=== PATIENT | female | born 1960 | race American Indian/Alaskan Native ===

== ENCOUNTER 2019-04-01 02:45 | Emergency (ER) | payer SELFPAY ==
[2019-04-01 03:31] LABS: Basophils % (Auto) 0.2 % (0.0-1.8); Eosinophils % (Auto) 0.2 % (0.0-4.3); Hematocrit 43.4 % (30.3-42.9); Lymphocytes # (Auto) 3.8 K/mm3 (1.2-5.4); Mean Corpuscular HGB Conc 35 % (30-34); Mean Corpuscular Volume 88 fl (79-97); Monocytes # (Auto) 1.2 K/mm3 (0.0-0.8); Platelet Count 349 K/mm3 (140-440); Red Blood Count 4.91 M/mm3 (3.65-5.03); Red Cell Distribution Width 14.1 % (13.2-15.2)
[2019-04-01] MEDS ORDERED: NACL 0.9% 1000 ML 1,000 ML IV ONE (03:38)
[2019-04-01] MEDS ORDERED: ZOFRAN IV ONE (03:39)
[2019-04-01] MEDS ORDERED: MORPHINE IV ONE (03:40)
[2019-04-01 04:03] LABS: Albumin 4.2 g/dL (3.9-5); Calcium 9.8 mg/dL (8.4-10.2)
[2019-04-01 04:15] LABS: Bacteria,Urine 2+ /HPF (Negative); Bilirubin,Urine NEG (Negative); Blood,Urine NEG (Negative); Color,Urine Yellow (Yellow); Hyaline Casts,Urine 17 /LPF; Mucus,Urine 3+ /HPF; Protein,Urine <15 mg/dL mg/dL (Negative); Urobilinogen,Urine < 2.0 mg/dL (<2.0)
[2019-04-01] MEDS ORDERED: ROCEPHIN/NS 1 GM/50 ML 1 GM/50 ML BAG IV ONE (04:26)
--- NOTE | 2019-04-01 04:45 | XRay Report ---
PROCEDURE: XR CHEST ROUTINE 2V TECHNIQUE: PA and lateral chest radiographs were obtained. HISTORY: cough COMPARISONS: None. FINDINGS: No mediastinal shift. Cardiac silhouette is not enlarged. Mild hyperaeration of the lungs and flatte sylvia of the hemidiaphragms. No pneumothorax, effusion, or focal pulmonary opacity. No acute skeletal finding. IMPRESSION: Suggested sequela of COPD without superimposed acute pulmonary abnormality. This document is electronically signed by Konrad Nair MD., April 01 2019 04:43:21 AM ET
[2019-04-01] MEDS ORDERED: K-DUR PO ONE (04:46)
--- NOTE | 2019-04-01 05:44 | Emergency Department Report ---
<BRENNA LYNN - Last Filed: 04/01/19 07:24> ED General Adult HPI - General Chief complaint: Pain General Stated complaint: MUSCLE CRAMPS Time Seen by Provider: 04/01/19 03:20 Source: patient Mode of arrival: Ambulatory Limitations: No Limitations - History of Present Illness Initial comments: Patient is a 58-year-old -[place] female with a history of hypertension and hyperlipidemia who presents to the ED with complaint of acute onset persistent severe muscle cramps in the upper extremities diffusely and low back pain for the last 2 hours. Patient states that she was asleep at home when she was woken up fluid severe muscle cramps in her hands, and her arms diffusely and bilaterally. Patient also states that she also has had intermittent low back pain that occasionally radiates to her right leg. The patient denies a fall, traumatic injury, dizziness, chest pain, shortness of breath, cough, dysuria, vaginal bleeding, nausea, vomiting, diarrhea, sore throat, nasal and sinus congestion or headache and dizziness. MD Complaint: Bilateral upper extremity cramps; low back pain -: Sudden, hour(s) (2) Location: back (lower back), upper extremity (bilateral arms) Radiation: back (lower), extremity (bilateral arms and hands) Severity scale (0 -10): 4 Quality: aching, sharp Consistency: constant Improves with: none Worsens with: none Associated Symptoms: denies: confusion, chest pain, cough, diaphoresis, fever/chills, headaches, loss of appetite, malaise, nausea/vomiting, rash, shortness of breath, syncope, weakness Treatments Prior to Arrival: none - Related Data Previous Rx's Medication Instructions Recorded Last Taken Type Nitrofurantoin Lassen/M-Cryst 100 mg PO Q12HR #10 capsule 04/01/19 Unknown Rx [Macrobid CAP] Allergies Allergy/AdvReac Type Severity Reaction Status Date / Time No Known Allergies Allergy Unverified 04/01/19 02:54 ED Review of Systems Comment: All other systems reviewed and negative Constitutional: malaise. denies: chills, fever Eyes: denies: eye pain, eye discharge, vision change ENT: denies: ear pain, throat pain, dental pain, hearing loss, congestion Respiratory: denies: cough, orthopnea, shortness of breath, SOB with exertion, SOB at rest, wheezing Cardiovascular: denies: chest pain, palpitations, dyspnea on exertion, edema, syncope, paroxysmal nocturnal dyspnea Endocrine: no symptoms reported. denies: see HPI, excessive sweating, flushing, intolerance to cold, increased hunger, increased thirst, increased urine, unexplained weight gain Gastrointestinal: denies: abdominal pain, nausea, vomiting, diarrhea, constipation, hematemesis Genitourinary: denies: urgency, dysuria, discharge Musculoskeletal: back pain (lower back), arthralgia (upper extremities bilaterally), myalgia. denies: joint swelling Skin: denies: rash, lesions Neurological: denies: headache, weakness, paresthesias Psychiatric: denies: anxiety, depression Hematological/Lymphatic: denies: easy bleeding, easy bruising ED Past Medical Hx - Past Medical History Previous Medical History?: Yes Hx Hypertension: Yes Additional medical history: High cholesterol - Surgical History Past Surgical History?: No - Social History Smoking Status: Current Every Day Smoker Substance Use Type: None - Medications Home Medications: Home Medications Medication Instructions Recorded Confirmed Last Taken Type Nitrofurantoin Lassen/M-Cryst 100 mg PO Q12HR #10 capsule 04/01/19 Unknown Rx [Macrobid CAP] ED Physical Exam - General Limitations: No Limitations General appearance: alert, in no apparent distress - Head Head exam: Present: atraumatic, normocephalic, normal inspection - Eye Eye exam: Present: normal appearance, PERRL, EOMI. Absent: scleral icterus, conjunctival injection, periorbital swelling, periorbital tenderness - ENT ENT exam: Present: normal exam, normal orophraynx, mucous membranes moist, TM's normal bilaterally, normal external ear exam - Neck Neck exam: Present: normal inspection, full ROM. Absent: tenderness, meningis mus, lymphadenopathy, thyromegaly - Respiratory Respiratory exam: Present: normal lung sounds bilaterally. Absent: respiratory distress, wheezes, rales, rhonchi, chest wall tenderness, accessory muscle use, decreased breath sounds, prolonged expiratory - Cardiovascular Cardiovascular Exam: Present: regular rate, normal rhythm, normal heart sounds. Absent: systolic murmur, diastolic murmur, rubs, gallop - GI/Abdominal GI/Abdominal exam: Present: soft, normal bowel sounds. Absent: distended, tenderness, guarding, rebound, hyperactive bowel sounds, hypoactive bowel sounds, organomegaly - Extremities Exam Extremities exam: Present: normal inspection, full ROM, tenderness (Mild and diffuse upper extremity tenderness), normal capillary refill - Back Exam Back exam: Present: normal inspection, paraspinal tenderness (Mildly tender lumbosacral paraspinal musculoskeletal tenderness). Absent: CVA tenderness (R), CVA tenderness (L), muscle spasm, vertebral tenderness - Neurological Exam Neurological exam: Present: alert, oriented X3, CN II-XII intact, normal gait, reflexes normal - Psychiatric Psychiatric exam: Present: normal affect, normal mood - Skin Skin exam: Present: warm, dry, intact, normal color, cyanosis. Absent: rash ED Course - Reevaluation(s) Reevaluation #1: 04/01/19 07:25 Patient is alert and oriented 3 and is not in distress but in pain. Patient was treated for pain in the ED and lab test results were reviewed and this shows acute leukocytosis of 19,800, hyponatremia 132 mmol per liter and hypokalemia 3.0 mmol per liter. CK level was 174 and hyperglycemia of 1 63 mg/dL. Urinalysis shows some white blood cells and moderate leukocyte esterase with 2+ bacteria. Patient was treated in the ED with pain medications, Rocephin 1 g IV 1, and normal saline 1 L IV bolus. Patient also was treated with potassium chloride 40 mEq by mouth as a Klor-Con, and chest x-ray shows no acute ca rdiopulmonary abnormalities but COPD. Given the fact that the patient's source of significant acute leukocytosis is unknown, abdomen and pelvis CT scan with contrast was ordered. 04/01/19 07:26 Reevaluation #2: 04/01/19 07:27 On reevaluation, the patient's pain is well-controlled with medications, patient resting comfortably and in the presence of her family. Abdomen pelvis CT scan with contrast is currently pending. Patient's care was transferred to my colleague Ms. Colby Lau JUDGE CLERK at shift change at 0700 hours. Ms. Lau shall review the abdomen pelvis CT scan w/contrast a imaging report and disposition the patient appropriately. ED Medical Decision Making - Lab Data Result diagrams: 04/01/19 03:02 04/01/19 03:02 - Radiology Data Radiology results: report reviewed, image reviewed No acute cardiopulmonary abnormalities - Differential Diagnosis Bilateral upper extremity pain; Muscle spasms; Leukocytosis; hypokalemia ED Disposition Clinical Impression: Muscle cramps at night, Acute hypokalemia Leukocytosis Qualifiers: Leukocytosis type: other Qualified Code(s): D72.828 - Other elevated white blood cell count Acute cystitis Qualifiers: Hematuria presence: without hematuria Qualified Code(s): N30.00 - Acute cysti tis without hematuria Disposition: TO HOME OR SELFCARE Condition: Stable Instructions: Urinary Tract Infection in Women (ED), Muscle Cramp (ED) Additional Instructions: Follow up with nephrology from the referral list below regarding kidneys as discussed on visit. Increase fluid intake to 1L to 2L daily. Complete full course of antibiotics as prescribed. Avoid drinking alcohol while taking antibiotics and for 24 hours after completion. Follow up with primary care provider in 2-3 days. Prescriptions: Nitrofurantoin Lassen/M-Cryst [Macrobid CAP] 100 mg PO Q12HR #10 capsule Referrals: [facility] MD NICOLE [Primary Care Provider] - 3-5 Days CRIS HERNANDEZ MD [Staff Physician] - 3-5 Days [facility] [Outside] - 3-5 Days [facility] [Outside] - 3-5 Days Forms: Work/School Release Form(ED) <AMRIT SANTIAGO - Last Filed: 04/01/19 08:18> ED Review of Systems ROS: Stated complaint: MUSCLE CRAMPS Other details as noted in HPI ED Course Vital Signs 04/01/19 02:50 Temperature 98.7 F Pulse Rate 91 H Respiratory 20 Rate Blood Pressure 140/64 O2 Sat by Pulse 98 Oximetry - Reevaluation(s) Reevaluation #2: 04/01/19 08:05 This patient was received from MAYE Bucio at shift change pending CT of abdomen. ED Medical Decision Making - Lab Data Result diagrams: 04/01/19 03:02 04/01/19 03:02 Lab Results 04/01/19 04/01/19 04/01/19 Range/Units 03:02 03:02 03:02 WBC 19.8 H (4.5-11.0) K/mm3 RBC 4.91 (3.65-5.03) M/mm3 Hgb 15.0 H (10.1-14.3) gm/dl Hct 43.4 H (30.3-42.9) % MCV 88 (79-97) fl MCH 31 (28-32) pg MCHC 35 H (30-34) % RDW 14.1 (13.2-15.2) % Plt Count 349 (140-440) K/mm3 Lymph % (Auto) 19.0 (13.4-35.0) % Lassen % (Auto) 6.0 (0.0-7.3) % Eos % (Auto) 0.2 (0.0-4.3) % Baso % (Auto) 0.2 (0.0-1.8) % Lymph # 3.8 (1.2-5.4) K/mm3 Lassen # 1.2 H (0.0-0.8) K/mm3 Eos # 0.0 (0.0-0.4) K/mm3 Baso # 0.0 (0.0-0.1) K/mm3 Seg Neutrophils % 74.6 H (40.0-70.0) % Seg Neutrophils # 14.7 H (1.8-7.7) K/mm3 Sodium 132 L (137-145) mmol/L Potassium 3.0 L (3.6-5.0) mmol/L Chloride 90.3 L (98-107) mmol/L Carbon Dioxide 22 (22-30) mmol/L Anion Gap 23 mmol/L BUN 23 H (7-17) mg/dL Creatinine 1.2 (0.7-1.2) mg/dL Estimated GFR 56 ml/min BUN/Creatinine Ratio 19 % Glucose 163 H (65-100) mg/dL Calcium 9.8 (8.4-10.2) mg/dL Magnesium (1.7-2.3) mg/dL Total Bilirubin 0.30 (0.1-1.2) mg/dL AST 25 (5-40) units/L ALT 17 (7-56) units/L Alkaline Phosphatase 112 (35-129) units/L Total Creatine Kinase 174 H (30-135) units/L Troponin T < 0.010 (0.00-0.029) ng/mL Total Protein 7.5 (6.3-8.2) g/dL Albumin 4.2 (3.9-5) g/dL Albumin/Globulin Ratio 1.3 % Urine Color (Yellow) Urine Turbidity (Clear) Urine pH (5.0-7.0) Ur Specific Preston (1.003-1.030) Urine Protein (Negative) mg/dL Urine Glucose (UA) (Negative) mg/dL Urine Ketones (Negative) mg/dL Urine Blood (Negative) Urine Nitrite (Negative) Urine Bilirubin (Negative) Urine Urobilinogen (<2.0) mg/dL Ur Leukocyte Esterase (Negative) Urine WBC (Auto) (0.0-6.0) /HPF Urine RBC (Auto) (0.0-6.0) /HPF U Epithel Cells (Auto) (0-13.0) /HPF Urine Bacteria (Auto) (Negative) /HPF Hyaline Casts /LPF Urine Mucus /HPF 04/01/19 04/01/19 Range/Units 03:30 05:55 WBC (4.5-11.0) K/mm3 RBC (3.65-5.03) M/mm3 Hgb (10.1-14.3) gm/dl Hct (30.3-42.9) % MCV (79-97) fl MCH (28-32) pg MCHC (30-34) % RDW (13.2-15.2) % Plt Count (140-440) K/mm3 Lymph % (Auto) (13.4-35.0) % Lassen % (Auto) (0.0-7.3) % Eos % (Auto) (0.0-4.3) % Baso % (Auto) (0.0-1.8) % Lymph # (1.2-5.4) K/mm3 Lassen # (0.0-0.8) K/mm3 Eos # (0.0-0.4) K/mm3 Baso # (0.0-0.1) K/mm3 Seg Neutrophils % (40.0-70.0) % Seg Neutrophils # (1.8-7.7) K/mm3 Sodium (137-145) mmol/L Potassium (3.6-5.0) mmol/L Chloride (98-107) mmol/L Carbon Dioxide (22-30) mmol/L Anion Gap mmol/L BUN (7-17) mg/dL Creatinine (0.7-1.2) mg/dL Estimated GFR ml/min BUN/Creatinine Ratio % Glucose (65-100) mg/dL Calcium (8.4-10.2) mg/dL Magnesium 2.10 (1.7-2.3) mg/dL Total Bilirubin (0.1-1.2) mg/dL AST (5-40) units/L ALT (7-56) units/L Alkaline Phosphatase (35-129) units/L Total Creatine Kinase (30-135) units/L Troponin T (0.00-0.029) ng/mL Total Protein (6.3-8.2) g/dL Albumin (3.9-5) g/dL Albumin/Globulin Ratio % Urine Color Yellow (Yellow) Urine Turbidity Cloudy (Clear) Urine pH 5.0 (5.0-7.0) Ur Specific Preston 1.016 (1.003-1.030) Urine Protein <15 mg/dl (Negative) mg/dL Urine Glucose (UA) Neg (Negative) mg/dL Urine Ketones Neg (Negative) mg/dL Urine Blood Neg (Negative) Urine Nitrite Neg (Negative) Urine Bilirubin Neg (Negative) Urine Urobilinogen < 2.0 (<2.0) mg/dL Ur Leukocyte Esterase Mod (Negative) Urine WBC (Auto) 9.0 H (0.0-6.0) /HPF Urine RBC (Auto) 8.0 (0.0-6.0) /HPF U Epithel Cells (Auto) 13.0 (0-13.0) /HPF Urine Bacteria (Auto) 2+ (Negative) /HPF Hyaline Casts 17 /LPF Urine Mucus 3+ /HPF - Radiology Data PROCEDURE: CT ABDOMEN PELVIS W CON TECHNIQUE: Computerized axial tomography of the abdomen and pelvis was performed after the IV injection of iodinated nonionic contrast. HISTORY: ABDOMINAL PAIN COMPARISONS: None . FINDINGS: Partially visualized intrathoracic contents are unremarkable. Benign calcified granuloma noted in the liver. The liver, gallbladder, pancreas, spleen, and adrenal glands are otherwise unremarkable. Extensive chronic cortical scarring and irregularity in the left kidney. Kidneys are normal in axis and position. Compensatory hypertrophy of the right kidney. No hydroureteronephrosis or nephrolithiasis. Anteverted uterus. No free fluid in the pelvis. Urinary bladder is unremarkable. Small and large bowel are normal in caliber. Appendix is normal. No free air, free fluid, or lymphadenopathy identified. An infrarenal abdominal aortic aneurysm is present measuring 3 x 2.7 cm on axial series 2, image 38. Peripheral thrombosis within the aneurysmal sac. Densely scattered atherosclerosis. Superficial soft tissues are unremarkable. No acute or aggressive appearing skeletal findings. IMPRESSION: No acute findings in the abdomen or pelvis. Infrarenal abdominal aortic aneurysm measuring 3 x 2.7 cm. Chronic left renal cortical scarring and atrophy with compensatory hypertrophy of the right kidney. - Medical Decision Making Patient received from MAYE Bucio at shift change pending CT of abdomen. The report was reviewed by myself with no acute findings. Some incidental findings of Infrarenal abdominal aortic aneurysm measuring 3 x 2.7 cm. Chronic left renal cortical scarring and atrophy with compensatory hypertrophy of the right kidney. There is a elevated white count, dirty urine, and hypokalemia. Hypokalemia was treated while in ER with Klor-Con. All other labs are unremarkable. Patient is resting in exam room. Patient will be treated for acute cystitis to cover leukocytosis. Referral to PCP and nephrology for further evaluation. Patient agreed with ER plan. Patient discharged home stable. Critical care attestation.: If time is entered above; I have spent that time in minutes in the direct care of this critically ill patient, excluding procedure time. ED Disposition Is pt being admited?: No Does the pt Need Aspirin: No Time of Disposition: 08:16
--- NOTE | 2019-04-01 07:41 | Cat Scan Report ---
PROCEDURE: CT ABDOMEN PELVIS W CON TECHNIQUE: Computerized axial tomography of the abdomen and pelvis was performed after the IV inject ion of iodinated nonionic contrast. HISTORY: ABDOMINAL PAIN COMPARISONS: None . FINDINGS: Partially visualized intrathoracic contents are unremarkable. Benign calcified granuloma noted in the liver. The liver, gallbladder, pancreas, spleen, and adrenal glands are otherwise unremarkable. Extensive chronic cortical scarring and irregularity in the left kidney. Kidneys are normal in axis a nd position. Compensatory hypertrophy of the right kidney. No hydroureteronephrosis or nephrolithiasi s. Anteverted uterus. No free fluid in the pelvis. Urinary bladder is unremarkable. Small and large bowel are normal in caliber. Appendix is normal. No free air, free fluid, or lymphade nopathy identified. An infrarenal abdominal aortic aneurysm is present measuring 3 x 2.7 cm on axial series 2, image 38. Peripheral thrombosis within the aneurysmal sac. Densely scattered atherosclerosis. Superficial soft tissues are unremarkable. No acute or aggressive appearing skeletal findings. IMPRESSION: No acute findings in the abdomen or pelvis. Infrarenal abdominal aortic aneurysm measuring 3 x 2.7 cm. Chronic left renal cortical scarring and atrophy with compensatory hypertrophy of the right kidney. This document is electronically signed by Konrad Nair MD., April 01 2019 07:39:19 AM ET
[2019-04-01 08:35] VITALS: BP 114/57
== END 2019-04-01 08:33 | disposition home or self-care (01) ==
LOC: ED 02:45
DX: E87.6 Hypokalemia (principal); D72.828 Other elevated white blood cell count; N30.00 Acute cystitis without hematuria; I10 Essential (primary) hypertension; E78.5 Hyperlipidemia, unspecified; F17.200 Nicotine dependence, unspecified, uncomplicated
CPT/HCPCS: 36415; 71046; 74177; 80053; 81001; 82550; 83735; 84484; 85025; 87086; 93005; 93010; 96365; 96375; 99284; J0696; J2270; J2405; J7030; Q9967

== ENCOUNTER 2022-01-19 13:42 | Emergency (ER) | payer SELFPAY ==
[2022-01-19 14:33] VITALS: BP 160/74
[2022-01-19] MEDS ORDERED: dexAMETHasone 20 MG/5 ML VIAL IM ONE (15:03)
--- NOTE | 2022-01-19 15:24 | Emergency Department Report ---
ED Back Pain/Injury HPI - General Chief Complaint: Back Pain/Injury Stated Complaint: BACK PAIN Source: patient Limitations: No Limitations - History of Present Illness Initial Comments: 59-year-old female presents to the ED complaining of back pain x 2 days. States that she was washing dishes and noticed some back pain that radiated down her right leg. Patient states she took gabapentin and tylenol which relieved the right leg pain but did not relieve the back pain. Patient denies any dysuria, loss of bowel or bladder fever, IV drug use or steroid use trauma or unintentional weight loss ,denies any neurological symptoms. Patient is alert and oriented x3. No acute distress noted .No ill appearance. MD Complaint: back pain Similar Symptoms Previously: Yes Place: home Radiation: none Severity: moderate Severity scale (0 -10): 6 Improves With: none Worsens With: none Associated Symptoms: denies other symptoms Treatments Prior to Arrival: cold therapy - Related Data Previous Rx's Medication Instructions Recorded Last Taken Type Nitrofurantoin [place]/M-Cryst 100 mg PO Q12HR #10 capsule 04/01/19 Unknown Rx [Macrobid CAP] predniSONE [Deltasone] 40 mg PO QDAY 5 Days #5 tab 01/19/22 Unknown Rx Allergies Allergy/AdvReac Type Severity Reaction Status Date / Time acetaminophen Allergy Vomiting Verified 01/19/22 14:31 [From Tylenol-Codeine] aspirin Allergy Bleeding Verified 01/19/22 14:31 codeine Allergy Vomiting Verified 01/19/22 14:31 [From Tylenol-Codeine] ED Review of Systems ROS: Stated complaint: BACK PAIN Other details as noted in HPI Constitutional: denies: chills, fever Eyes: denies: eye pain, eye discharge, vision change ENT: denies: ear pain, throat pain Respiratory: denies: cough, shortness of breath, wheezing Cardiovascular: denies: chest pain, palpitations Endocrine: no symptoms reported Gastrointestinal: denies: abdominal pain, nausea, diarrhea Genitourinary: denies: urgency, dysuria, discharge Musculoskeletal: denies: back pain, joint swelling, arthralgia Skin: denies: rash, lesions Neurological: denies: headache, weakness, paresthesias Psychiatric: denies: anxiety, depression Hematological/Lymphatic: denies: easy bleeding, easy bruising ED Past Medical Hx - Past Medical History Previous Medical History?: Yes Hx Hypertension: Yes Additional medical history: High cholesterol - Surgical History Past Surgical History?: No - Social History Smoking Status: Never Smoker Substance Use Type: None - Medications Home Medications: Home Medications Medication Instructions Recorded Confirmed Last Taken Type Nitrofurantoin [place]/M-Cryst 100 mg PO Q12HR #10 capsule 04/01/19 Unknown Rx [Macrobid CAP] predniSONE [Deltasone] 40 mg PO QDAY 5 Days #5 tab 01/19/22 Unknown Rx ED Physical Exam - General Limitations: No Limitations General appearance: alert, in no apparent distress - Head Head exam: Present: atraumatic, normocephalic - Eye Eye exam: Present: normal appearance - ENT ENT exam: Present: mucous membranes moist - Neck Neck exam: Present: normal inspection - Respiratory Respiratory exam: Present: normal lung sounds bilaterally. Absent: respiratory distress - Cardiovascular Cardiovascular Exam: Present: regular rate, normal rhythm. Absent: systolic murmur, diastolic murmur, rubs, gallop - GI/Abdominal GI/Abdominal exam: Present: soft, normal bowel sounds - Extremities Exam Extremities exam: Present: normal inspection - Back Exam Back exam: Present: normal inspection - Neurological Exam Neurological exam: Present: alert, oriented X3 - Psychiatric Psychiatric exam: Present: normal affect, normal mood - Skin Skin exam: Present: warm, dry, intact, normal color. Absent: rash ED Course Vital Signs 01/19/22 14:31 Temperature 98.6 F Pulse Rate 81 Respiratory 18 Rate Blood Pressure 160/74 [Right] O2 Sat by Pulse 95 Oximetry ED Medical Decision Making - Medical Decision Making 59-year-old female presents to the ED complaining of back pain x 2 days. States that she was washing dishes and noticed some back pain that radiated down her right leg. Patient states she took gabapentin and tylenol which relieved the right leg pain but did not relieve the back pain. Patient denies any dysuria, loss of bowel or bladder fever, IV drug use or steroid use trauma or unintentional weight loss ,denies any neurological symptoms. Patient is alert and oriented x3. No acute distress noted .No ill appearance. Physical examination unremarkable patient patient pointing toward upper and lower back for pain stating pain is currently a 8 out of 10. Given patient Decadron 10 mg IM. Patient states that the pain was 0 out of 10.after injection .patient was unable to give urine for urinalysis. Shw was ready for discharge, states that she feels better and was ready to go home. Will discharge patient prednisone and to follow-up with primary care doctor. She Is to continue to take gabapentin and Tylenol as previous prescribed. Rechecked the patient is resting quietly quietly and comfortable and feeling better. I discussed the results of diagnostic study, my clinical impression and the plan for further treatment with the patient. Patient agrees with plan and discharge at this present time. All question addressed. I have given the patient instruction regarding a diagnosis ,expectation ,follow- up and return precaution. I explained to the patient that emergent condition may arise and to return to the ED for new worsen and any new persisting condition. I have explained the importance of following up with the primary care physician or referral physician listed below has instructed. The patient verbalized understanding of discharge instruction. Critical care attestation.: If time is entered above; I have spent that time in minutes in the direct care of this critically ill patient, excluding procedure time. ED Disposition Clinical Impression: Back pain Qualifiers: Back pain location: low back pain Chronicity: chronic Back pain laterality: bilateral Sciatica presence: with sciatica Sciatica laterality: sciatica of right side Qualified Code(s): M54.41 - Lumbago with sciatica, right side Disposition: 01 HOME / SELF CARE / HOMELESS Is pt being admited?: No Does the pt Need Aspirin: No Condition: Stable Instructions: Chronic Back Pain, [id number] Additional Instructions: Take medication as prescribed Take blood pressure medication every day as prescribed Return to ED for any worsening symptoms Take Tylenol [id number] has needed for pain back pain Prescriptions: predniSONE [Deltasone] 40 mg PO QDAY 5 Days #5 tab Referrals: PRIMARY CARE, [Primary Care Provider] - 3-5 Days AYAAN FERRELL MD [Referring] - 3-5 Days VANDA FRANCIS MD [Staff Physician] - 3-5 Days
== END 2022-01-19 16:29 | disposition home or self-care (01) ==
LOC: ED 13:42
DX: M54.50 Low back pain, unspecified (principal); E78.00 Pure hypercholesterolemia, unspecified; I10 Essential (primary) hypertension; Z88.8 Allergy status to other drugs, medicaments and biological substances; Z79.899 Other long term (current) drug therapy; Z88.5 Allergy status to narcotic agent
CPT/HCPCS: 96372; 99282; J1100